=== PATIENT | male | born 1965 | race African-American/Black ===

== ENCOUNTER 2023-04-28 20:57 | Observation (INO) | payer BC ==
[2023-04-28] MEDS ORDERED: Metoprolol Tartrate 5 MG/5 ML VIAL ONE (21:02)
[2023-04-28 21:31] LABS: #Eosinphils 0.2 thou/uL (0.0-0.7); #Monocytes 0.5 thou/uL (0.11-0.59); %Eosinophils 5.6 % (0.0-10.0); %Lymphocytes 32.2 % (21.0-51.0); %Monocytes 12.6 % (0.0-10.0); %Neutrophils 48.4 % (42.0-75.0); Hematocrit 39.6 % (42.0-52.0); Hemoglobin 13.2 g/dL (14.0-18.0); Mean Corpuscular HGB CONC 33.3 g/dL (32.0-36.0); Mean Corpuscular Hemoglobin 29.2 pg (27.0-31.0); Mean Corpuscular Volume 87.6 fl (78.0-98.0); Platelet Count 202 10x3/uL (130-400); Red Blood Cell (RBC) Count 4.52 mill/uL (4.70-6.10); White Blood Cell (WBC) Count 4.1 10x3/uL (4.8-10.8)
[2023-04-28 21:55] LABS: ALT (SGPT) 13 U/L (8-55); AST (SGOT) 15 U/L (5-34); Albumin 3.6 g/dL (3.5-5.0); Alkaline Phosphatase 57 U/L (40-110); Anion Gap 12 mmol/L (10-20); BUN (Urea Nitrogen) 22 mg/dL (8.4-25.7); Bilirubin, Total Less than 0.2 mg/dL (0.2-1.2); Calc. Creatinine Clearance 0 mL/min (70-130); Calcium 8.5 mg/dL (7.8-10.44); Carbon Dioxide 23 mmol/L (22-29); Chloride 107 mmol/L (98-107); Estimated GFR 86; Globulin 2.7 g/dL (2.4-3.5); Glucose 106 mg/dL (70-105); Magnesium 1.7 mg/dL (1.6-2.6); Potassium 3.5 mmol/L (3.5-5.1); Protein, Total 6.3 g/dL (6.0-8.3); Sodium 138 mmol/L (136-145)
[2023-04-28 21:59] LABS: Troponin I Less than 0.010 ng/mL (< 0.028)
[2023-04-29] MEDS ORDERED: Nitroglycerin 0.4 MG TAB (25 Tab Bottle) SL PRN (00:01)
[2023-04-29] MEDS ORDERED: Ondansetron ODT 4 MG TAB PO PRN (00:01)
[2023-04-29] MEDS ORDERED: Acetaminophen 325 MG TAB PO PRN (00:01)
[2023-04-29] MEDS ORDERED: Docusate 100 MG CAP PO PRN (00:01)
[2023-04-29] MEDS ORDERED: Ondansetron PF 4 MG/2 ML Vial IVP PRN (00:01)
[2023-04-29] MEDS ORDERED: Acetaminophen 650 MG Suppository PR PRN (00:01)
[2023-04-29] MEDS ORDERED: Sodium Chloride 0.9% 1,000 ML IV SCH (00:15)
[2023-04-29] MEDS ORDERED: Potassium Chloride 20 MEQ TAB PO SCH (00:15)
[2023-04-29] MEDS ORDERED: Magnesium 2 GM/50 ML(in water) 2 GM in Premix Bag 1 BAG IVPB SCH (00:15)
[2023-04-29] MEDS ORDERED: Electrolyte Replacement Protocol 1 EACH FS SCH (00:15)
[2023-04-29 00:17] VITALS: BMI 30.2
[2023-04-29] MEDS ORDERED: Magnesium 2 GM/50 ML BAG (IN WATER) ONE ×2 (01:10→09:22)
[2023-04-29] MEDS ORDERED: Potassium Chloride 20 MEQ TAB ONE ×2 (01:10→01:18)
[2023-04-29 02:03] LABS: Troponin I 0.017 ng/mL (< 0.028)
[2023-04-29 04:16] VITALS: TEMP 98.3
[2023-04-29 04:33] LABS: #Eosinphils 0.2 thou/uL (0.0-0.7); #Monocytes 0.4 thou/uL (0.11-0.59); #Neutrophils 1.8 thou/uL (1.40-6.50); %Basophils 0.9 % (0.0-1.0); %Eosinophils 5.7 % (0.0-10.0); %Lymphocytes 32.5 % (21.0-51.0); %Neutrophils 50.9 % (42.0-75.0); Hematocrit 40.5 % (42.0-52.0); Hemoglobin 13.3 g/dL (14.0-18.0); Mean Corpuscular HGB CONC 32.8 g/dL (32.0-36.0); Mean Corpuscular Hemoglobin 29.4 pg (27.0-31.0); Mean Corpuscular Volume 89.4 fl (78.0-98.0); Mean Platelet Volume 9.4 fL (7.4-10.4); Platelet Count 204 10x3/uL (130-400); RBC Distribution Width 13.2 % (11.5-14.5); Red Blood Cell (RBC) Count 4.53 mill/uL (4.70-6.10); White Blood Cell (WBC) Count 3.5 10x3/uL (4.8-10.8)
[2023-04-29 05:04] LABS: Anion Gap 9 mmol/L (10-20); BUN (Urea Nitrogen) 18 mg/dL (8.4-25.7); Calc. Creatinine Clearance 105 mL/min (70-130); Calcium 8.7 mg/dL (7.8-10.44); Carbon Dioxide 25 mmol/L (22-29); Chloride 107 mmol/L (98-107); Estimated GFR 96; Glucose 87 mg/dL (70-105); Phosphorus 3.3 mg/dL (2.3-4.7); Potassium 4.5 mmol/L (3.5-5.1); Sodium 136 mmol/L (136-145)
[2023-04-29 05:06] LABS: Cardiac Risk 4.1 (Less than 4.5)
[2023-04-29 05:30] LABS: Thyroid Stimulating Hormone 1.5722 uIU/mL (0.35-4.94)
[2023-04-29 06:55] LABS: Amphetamine Not Detected (NotDetected); Barbiturates Screen Not Detected (NotDetected); Benzodiazepine Screen Not Detected (NotDetected); Cocaine Metabolite Screen Not Detected (NotDetected); Methadone Not Detected (NotDetected); Methamphetamine Not Detected (NotDetected); Opiate Screen Not Detected (NotDetected); Oxycodone Screen Not Detected (NotDetected); Phencyclidine (PCP) Not Detected (NotDetected); THC/Cannabinoid Screen Not Detected (NotDetected); Tricyclic Screen Not Detected (NotDetected)
[2023-04-29] MEDS ORDERED: Thiamine 100 MG TAB PO SCH (09:00)
[2023-04-29] MEDS ORDERED: Aspirin Chewable 81 MG TAB PO SCH (09:00)
[2023-04-29] MEDS ORDERED: Folic Acid 1 MG TAB PO SCH (09:00)
[2023-04-29] MEDS ORDERED: Multivit, Therapeutic 1 TAB PO SCH (09:00)
[2023-04-29] MEDS ORDERED: Magnesium Sulfate 4 GM in Sodium Chloride 0.9% 250 ML 250 ML IVPB SCH (09:00)
[2023-04-29] MEDS ORDERED: Magnesium Sulfate In Water 4 GM in Premix Bag 1 BAG IVPB SCH (09:15)
[2023-04-29] MEDS ORDERED: Thiamine 100 MG TAB ONE (09:22)
[2023-04-29] MEDS ORDERED: Folic Acid 1 MG TAB ONE (09:22)
[2023-04-29] MEDS ORDERED: Aspirin Chewable 81 MG TAB ONE (09:22)
[2023-04-29] MEDS ORDERED: Multivitamin W/ Minerals 1 TAB ONE (09:22)
[2023-04-29 10:37] VITALS: BP 131/97
[2023-04-29] MEDS ORDERED: Atorvastatin Calcium 40 MG TAB PO SCH (21:00)
[2023-04-30] MEDS ORDERED: dilTIAZem CD 120 MG CAP PO SCH (09:00)
== END 2023-04-29 10:39 | disposition home or self-care (01) ==
LOC: ERS 20:57 → ERHOLD 22:31
PROVIDERS: ADMIT Student in an Organized Health Care Education/Training Program; ATTEND Internal Medicine
DX: I47.1 Supraventricular tachycardia (principal); R00.2 Palpitations; F17.290 Nicotine dependence, other tobacco product, uncomplicated; T67.5XXA Heat exhaustion, unspecified, initial encounter; F10.10 Alcohol abuse, uncomplicated; I12.9 Hypertensive chronic kidney disease with stage 1 through stage 4 chronic kidney disease, or unspecified chronic kidney disease; N18.2 Chronic kidney disease, stage 2 (mild); E86.0 Dehydration; E87.6 Hypokalemia; E83.42 Hypomagnesemia; D72.819 Decreased white blood cell count, unspecified; Z79.82 Long term (current) use of aspirin; Z79.899 Other long term (current) drug therapy; Y90.9 Presence of alcohol in blood, level not specified
CPT/HCPCS: 36415; 71045; 80048; 80053; 80061; 80306; 82550; 82607; 83735; 83880; 84100; 84443; 84484; 85025; 93005; 96361; 96372; 96374; 96375; 96376; G0378; J1650; J3475; J7050